=== PATIENT | female | born 1965 | race Caucasian/White ===

== ENCOUNTER 2020-05-09 22:56 | Inpatient (IN) | payer OTHER, MEDICAID, SELFPAY ==
[~2020-05-09] VITALS: Ht 162.6 cm; Wt 114.8 kg
[2020-05-09 22:56] VITALS: BP_SYST 91
--- NOTE | 2020-05-09 23:00 | NUR ---
Patient to ER bed 2 to gown for evaluation. Side rails up.
--- NOTE | 2020-05-09 23:10 | NUR ---
Dr. Lei bedside for pt eval
[2020-05-09] MEDS ORDERED: NACL 0.9% 1,000 ML IV ONE (23:15)
--- NOTE | 2020-05-09 23:15 | NUR ---
Pt QUEENIE from [facility] to ED with history of obesity seizure disorder high cholesterol hypothyroidism developmental delay overactive bladder bipolar disorder and depression brought in by EMS from her locked [facility], presents to the ED for gradual onset of hypotension. Per EMS when staff was doing there scheduled blood pressure checks found the patient to be hypotensive in the 60s. EMS was called. Per staff at the facility patient is at her mental baseline and had otherwise been well without any other complaints or issue
[2020-05-09 23:42] LABS: BASOPHILS # (AUTO) 0.2 K/uL (0.0-0.2); BASOPHILS % (AUTO) 1.8 % (0.0-2.0); HEMATOCRIT 38.7 % (36-48); HEMOGLOBIN 12.8 g/dL (12.0-16.0); LYMPHOCYTES # (AUTO) 0.6 K/uL (1.0-5.5); MEAN CORPUSCULAR HEMOGLOBIN 32 pg (27-31); MEAN CORPUSCULAR HGB CONC 33 % (32-36); MEAN CORPUSCULAR VOLUME 97 fL (79.0-98.0); MONOCYTES # (AUTO) 1.4 K/uL (0.0-1.0); MONOCYTES % (AUTO) 12.5 % (1.7-9.3); NEUTROPHILS # (AUTO) 9.3 K/uL (1.8-7.7); NEUTROPHILS % (AUTO) 80.7 % (40.0-70.0); PLATELET COUNT (AUTO) 115 K/uL (130-430); RED BLOOD CELL COUNT(AUTO) 3.99 MIL/uL (4.2-6.2); RED CELL DISTRIBUTION WIDTH 15.3 % (9.0-15.0); WHITE BLOOD COUNT (AUTO) 11.5 K/uL (4.8-10.8)
[2020-05-10] VITALS (9 sets, daily range): BP systolic 83–120
[2020-05-10 00:13] LABS: INR 1.1 (0.8-1.2); PROTHROMBIN TIME 11.6 SECS (9.5-12.5)
--- NOTE | 2020-05-10 00:18 | NUR ---
In and out cath and collect urine and send to lab.
[2020-05-10 00:23] LABS: CALCIUM 9.5 mg/dL (8.4-11.0); CREATININE 1.21 mg/dL (0.55-1.30); POTASSIUM 3.3 mmol/L (3.5-5.1)
[2020-05-10 00:26] LABS: ALBUMIN 2.4 g/dL (3.4-4.8); TOTAL BILIRUBIN 0.4 mg/dL (0.0-1.0)
[2020-05-10] MEDS ORDERED: NACL 0.9% 1,000 ML IV ONE (00:30)
--- NOTE | 2020-05-10 00:55 | NUR ---
RT bedside for ABG lab draw
--- NOTE | 2020-05-10 01:59 | NUR ---
O2 sat kept above 88% via Maximizer O2 device for 6 L
[2020-05-10] MEDS ORDERED: LevALBUTEROL HCL 1.25 MG/0.5 ML *CONC.* VIAL.NEB (XOPENEX CONC.) INH ONE (02:00)
[2020-05-10] MEDS ORDERED: IPRATROPIUM/ALBUTEROL SULFATE 3 ML AMPUL.NEB (DUONEB) INH PRN (02:45)
[2020-05-10] MEDS ORDERED: methylPREDNISolone SOD SUCC/PF 62.5 MG/ML VIAL IV SCH (03:00)
--- NOTE | 2020-05-10 03:01 | NUR ---
VSS, hypotension undercontrol SBP above 100
--- NOTE | 2020-05-10 04:02 | NUR ---
VSS no s/s of acute distress Resting on gurney rails up
[2020-05-10] MEDS ORDERED: LEVOFLOXACIN 500 MG/D5W 100 ML IV SCH (05:00)
--- NOTE | 2020-05-10 05:05 | NUR ---
Total care provided with complete linen change, well tolerated
--- NOTE | 2020-05-10 06:10 | NUR ---
Will continue on Tele monitoring protocol
--- NOTE | 2020-05-10 08:48 | NUR ---
PAGED DR ZEPEDA STAT
[2020-05-10] MEDS ORDERED: PIPERACILLIN/TAZOBACTAM 3.375 GM/VIAL (ZOSYN) IV ONE ×2 (09:04→21:35)
[2020-05-10] MEDS ORDERED: NOREPINEPHRINE 4 MG/4 ML VIAL IV ONE ×2 (09:07→22:27)
[2020-05-10] MEDS: NOREPINEPHRINE BITARTRATE 4 MG in NS 246 ML IV PRN ×2 (09:36→21:55)
[2020-05-10] MEDS: NACL 0.9% 1,000 ML IV SCH ×3 (09:38→21:09)
[2020-05-10] MEDS: PIPERACILLIN/TAZO 3.375/DEX-IS 50 ML IV SCH ×3 (09:38→21:52)
--- NOTE | 2020-05-10 09:56 | NUR ---
Pt reassessed, BP 98/39, P 92, RR 16, O2 sat 94%
[2020-05-10 09:59] LABS: INR 1.2 (0.8-1.2); PROTHROMBIN TIME 12.1 SECS (9.5-12.5)
[2020-05-10] MEDS ORDERED: HYDROCORTISONE SOD SUCC 100 MG/2 ML VIAL IVP ONE (10:00)
--- NOTE | 2020-05-10 10:10 | NUR ---
Pt Reassessed BP 113/48, P 95, O2 sat 93%, RR 16
--- NOTE | 2020-05-10 10:15 | NUR ---
Pt Reassessed BP 98/51, P 95, O2 sat 93%, RR 14
[2020-05-10 10:16] LABS: BASOPHILS % (AUTO) 0.2 % (0.0-2.0); HEMATOCRIT 33.7 % (36-48); HEMOGLOBIN 10.8 g/dL (12.0-16.0); LYMPHOCYTES % (AUTO) 4.9 % (20.5-51.5); MEAN CORPUSCULAR HEMOGLOBIN 32 pg (27-31); MEAN CORPUSCULAR HGB CONC 32 % (32-36); MEAN CORPUSCULAR VOLUME 100 fL (79.0-98.0); MONOCYTES # (AUTO) 2.5 K/uL (0.0-1.0); MONOCYTES % (AUTO) 12.6 % (1.7-9.3); NEUTROPHILS # (AUTO) 16.2 K/uL (1.8-7.7); NEUTROPHILS % (AUTO) 82.3 % (40.0-70.0); PLATELET COUNT (AUTO) 96 K/uL (130-430); RED BLOOD CELL COUNT(AUTO) 3.38 MIL/uL (4.2-6.2); RED CELL DISTRIBUTION WIDTH 16.1 % (9.0-15.0); WHITE BLOOD COUNT (AUTO) 19.7 K/uL (4.8-10.8)
--- NOTE | 2020-05-10 10:20 | NUR ---
Pt Reassessed BP 110/57, P 95, O2 sat 89%, RR 16
--- NOTE | 2020-05-10 10:25 | NUR ---
Pt maintaining blood pressure above goal limit. Pt resting in [facility], monitoring O2 saturation at this time, pt presents with increased work of breathing, cyanosis around lips, MD notified.
[2020-05-10 10:26] LABS: ANION GAP 15 (5-15); CALCIUM 8.9 mg/dL (8.4-11.0); CHLORIDE 104 mmol/L (98-107); CREATININE 1.58 mg/dL (0.55-1.30); GLUCOSE 122 mg/dL (70-99); POTASSIUM 3.4 mmol/L (3.5-5.1); SODIUM SERUM 138 mmol/L (136-145); UREA NITROGEN, BLOOD 21 mg/dL (8-21)
[2020-05-10 10:31] LABS: GFR AFRICAN AMERICAN 44 mL/min (>90)
[2020-05-10 10:34] LABS: ALANINE AMINOTRANSFERASE 15 U/L (12-78); ASPARTATE AMINOTRANSFERASE 15 U/L (10-37); TOTAL BILIRUBIN 0.5 mg/dL (0.0-1.0)
--- NOTE | 2020-05-10 11:00 | NUR ---
BiPap ordered for further assistance with patient respiration
[2020-05-10] MEDS ORDERED: PROPOFOL DRIP 100 ML IV ONE (11:24)
--- NOTE | 2020-05-10 11:30 | NUR ---
Patient not known to be of DNR status. Patient medicated with 20 mg of Etomidate and 50mg of Rocuronium for sedation prior to placement of ET tube. Respiratory therapy at bedside prior to placement. Size 7.5 ET tube placed by 21 at the lip. Cuff inflated with 10 cc air. Auscultation of breath sounds over bilateral chest wall. ET tube secured with device per RT. O2 sats 100% pulse ox. PCXR ordered to check tube placement.
[2020-05-10] MEDS ORDERED: methylPREDNISolone SOD SUCC/PF 62.5 MG/ML VIAL IVP SCH (12:00)
[2020-05-10] MEDS: VANCOMYCIN HCL 2,000 MG in NS 500 ML IV SCH (12:27)
--- NOTE | 2020-05-10 12:52 | NUR ---
Pt resting in gurney at this time, intubation sucessful, no distress noted at this time
--- NOTE | 2020-05-10 13:03 | NUR ---
PAGED DR MEJIA [phone]
[2020-05-10] MEDS ORDERED: ROCURONIUM BROMIDE 10 MG/ML (ZEMURON) IV ONE (15:02)
[2020-05-10] MEDS ORDERED: ETOMIDATE 20 MG/ 10 ML VIAL (AMIDATE) IVP ONE (15:02)
--- NOTE | 2020-05-10 15:04 | NUR ---
SS notes: Pt is a 55 y/o single female who came in via ED for COPD. Pt came from [facility] and has been there since April 25. Prior to [facility], pt was at [facility], and prior to that, pt was living at [facility]. C2 TACTICAL ANALYSIS TECHNICIAN spoke with linux system administrator Nadia Neri from [facility] ([phone]) who stated pt has been a resident with them since March 29, 2020. Pt is conserved by her father, George Rodriguez (p:[phone]) and belongs to [facility]. Pt's sales representative gas service is Makayla Moe (p:[phone]). C2 TACTICAL ANALYSIS TECHNICIAN phoned both conservator and sales representative gas service and left messages to call back. If medically and psychiatrically cleared and stable, pt can go back to [facility] ([address] [place] [address]). Melissa Peres of updated.
--- NOTE | 2020-05-10 15:35 | NUR ---
Nadia Neri from pt home called regarding pt status. Left contact number [phone]
--- NOTE | 2020-05-10 16:00 | NUR ---
Pt intubated at this time, Propofol and Levophed maintaining pt vital signs WNL. No distress noted at this time.
--- NOTE | 2020-05-10 18:00 | NUR ---
Pt vitals are stable at this time, pt appears comfortable, no distress noted
[2020-05-10 19:57] LABS: BILIRUBIN,URINE NEGATIVE (NEGATIVE); BLOOD, URINE NEGATIVE (NEGATIVE); CLARITY/URINE CLEAR (CLEAR); COLOR,URINE YELLOW (YELLOW); GLUCOSE,URINE NEGATIVE (NEGATIVE); KETONES,URINE TRACE (NEGATIVE); LEUKOCYTE ESTERASE ,URINE NEGATIVE (NEGATIVE); NITRITE, URINE NEGATIVE (NEGATIVE); PH,URINE 5.5 (5.0-8.0); PROTEIN URINE NEGATIVE (NEGATIVE); UROBILINOGEN,URINE 0.2 (0.2-1.0)
--- NOTE | 2020-05-10 20:00 | NUR ---
Patient will be admitted to [facility]. Admitted to icu unit. Will go to room 5. Belongings list completed. Complete and up to date summary report printed. SBAR report to be given at bedside with opportunity for questions.
--- NOTE | 2020-05-10 20:25 | NUR ---
ICU ADMIT Pt brought by SKIP LOAD DRIVER. Pt is sedated on vent, tolerating current vent settings. KENRICK PICCLINE noted with Diprivan and Levophed infusing. Wilkerson catheter in place and draining to gravity. Skin warm and dry. Safety precautions in place, call light within reach. Will continue to monitor.
--- NOTE | 2020-05-10 20:36 | NUR ---
Transfer to ICU via ACLS protocol. Licensed nurse present. IV present no signs or symptoms of infiltration.
--- NOTE | 2020-05-10 21:00 | NUR ---
Jake Cruz RN titrate diprivan to 25 mcg/kg/min
[2020-05-10] MEDS: HYDROCORTISONE SOD SUCC 100 MG/2 ML VIAL IVP SCH (21:13)
--- NOTE | 2020-05-10 21:30 | NUR ---
Jake Cruz RN titrate diprivan to 30 mcg/kg/min
[2020-05-10] MEDS: PROPOFOL DRIP 100 ML IV PRN (21:56)
[2020-05-10] MEDS ORDERED: FLU VACC QS2020-21 (6 mos & up) 0.5 ML/SYRINGE I.M. PRN (23:00)
[2020-05-11] VITALS (34 sets, daily range): BP systolic 71–141
[2020-05-11] MEDS: HYDROCORTISONE SOD SUCC 100 MG/2 ML VIAL IVP SCH ×3 (01:17→13:17)
[2020-05-11] MEDS: PIPERACILLIN/TAZO 3.375/DEX-IS 50 ML IV SCH ×5 (01:17→23:33)
[2020-05-11] MEDS: PROPOFOL DRIP 100 ML IV PRN ×6 (01:17→22:29)
[2020-05-11] MEDS: NOREPINEPHRINE BITARTRATE 4 MG in NS 246 ML IV PRN ×4 (04:08→21:28)
[2020-05-11] MEDS: NACL 0.9% 1,000 ML IV SCH ×3 (04:22→21:27)
--- NOTE | 2020-05-11 07:18 | NUR ---
ENDORSEMENT Pt care endorsed to dayshift RN using nursing SBAR.
--- NOTE | 2020-05-11 08:00 | NUR ---
AM ASSESSMENT. PT AFEBRILE, ORALLY INTUBATED, OPENED HER EYES TO TACTILE STIMULI, RECEIVING PROPOFOL DRIP AT 30 MCG/KG/MIN, NOREPINEPHRINE DRIP AT 0.1 MCG/KG/MIN. TURNED PT TO HER SIDE, PILLOW PLACED UNDER HER LEGS AND TO HER BACK. RASHES TO HER ABDOMEN AND SCRATCH BENDER TO ARMS, LEGS.
[2020-05-11 08:58] LABS: BILIRUBIN,URINE NEGATIVE (NEGATIVE); BLOOD, URINE NEGATIVE (NEGATIVE); COLOR,URINE YELLOW (YELLOW); GLUCOSE,URINE NEGATIVE (NEGATIVE); KETONES,URINE NEGATIVE (NEGATIVE); LEUKOCYTE ESTERASE ,URINE NEGATIVE (NEGATIVE); NITRITE, URINE NEGATIVE (NEGATIVE); PROTEIN URINE NEGATIVE (NEGATIVE); UROBILINOGEN,URINE 0.2 (0.2-1.0)
[2020-05-11 09:00] LABS: CLARITY/URINE SLIGHTLY HAZY (CLEAR)
--- NOTE | 2020-05-11 09:35 | NUR ---
SECOND NURSE WITNESSED LEVOPHED DRIP TO 0.13 MCG/KG/MIN AT THIS TIME.
--- NOTE | 2020-05-11 10:00 | NUR ---
SECOND NURSE WITNESSED LEVOPHED DRIP TO 0.10 MCG/KG/MIN AT THIS TIME.
[2020-05-11] MEDS: VANCOMYCIN HCL 2,000 MG in NS 500 ML IV SCH (10:51)
[2020-05-11 11:02] LABS: HEMATOCRIT 36.9 % (36-48); HEMOGLOBIN 12.1 g/dL (12.0-16.0); MEAN CORPUSCULAR HEMOGLOBIN 32 pg (27-31); MEAN CORPUSCULAR HGB CONC 33 % (32-36); MEAN CORPUSCULAR VOLUME 96 fL (79.0-98.0); PLATELET COUNT (AUTO) 80 K/uL (130-430); RED BLOOD CELL COUNT(AUTO) 3.85 MIL/uL (4.2-6.2); RED CELL DISTRIBUTION WIDTH 16.4 % (9.0-15.0)
[2020-05-11 11:07] LABS: CALCIUM 8.3 mg/dL (8.4-11.0); CREATININE 0.89 mg/dL (0.55-1.30)
--- NOTE | 2020-05-11 11:11 | NUR ---
Nutrition Update Bairon Scale 13 noted. Pt admitted for COVID. Diet: NPO BMI: 43.6 kg/m2 RD to follow per nutrition care standards.
[2020-05-11 11:22] LABS: WHITE BLOOD COUNT (AUTO) 39.6 K/uL (4.8-10.8)
[2020-05-11 11:26] LABS: ALBUMIN 1.9 g/dL (3.4-4.8); TOTAL BILIRUBIN 1.1 mg/dL (0.0-1.0)
--- NOTE | 2020-05-11 11:30 | NUR ---
ELEVATED WBC PAGED DR DOWNING SEMICONDUCTOR DEVELOPMENT TECHNICIAN FOR DR DANG.
--- NOTE | 2020-05-11 11:40 | NUR ---
FAMILY. A CALL RECEIVED FROM GRACE, HE SAID HE IS HER FATHER, CURRENTLY RESIDING IN [place], . UPDATE GIVEN ON HER STATUS.
--- NOTE | 2020-05-11 12:19 | NUR ---
Gas Prover: Gas Prover referral received CONSULTING DATABASE ADMINISTRATOR spoke to patients father as patient in intubated as of 05/10 and in ICU. Father stated he is in agreement with patient going to [facility] once patient is medically cleared. Father wanted to know a medical update so CONSULTING DATABASE ADMINISTRATOR transferred him over to the pharmacy intern. station. CONSULTING DATABASE ADMINISTRATOR will remain available as needed.
--- NOTE | 2020-05-11 12:30 | NUR ---
. DR DOWNING IN THE UNIT AND WENT TO ASSESS PT. NEW ORDERS RECEIVED, TO CONSULT DR HANCOCK.
--- NOTE | 2020-05-11 12:35 | NUR ---
CONSULTATION PAGED PRIORITY: ROUTINE REASON FOR CONSULTATION?:ELEVATED WBC WAS CONSULT CALLED:Y PERSON WHO WAS NOTIFIED:BUSTER CONSULTING PHYSICIAN:DAVE NEAL (HEATHER WEBER DOG RACES MANAGER) TEMPERATURE REGULATOR SPECIALTY:INFECTIOUS DISEASE TEMPERATURE REGULATOR PHONE NUMBER:[phone] REQUESTING PHYSICIAN:ANA LILIA TREVIÑO
[2020-05-11 13:46] LABS: ATYPICAL LYMPHOCYTES % 0 % (0-0); BAND % (MANUAL) 64 % (0-6); BASOPHILS % (MANUAL) 0 % (0-2); EOSINOPHILS % (MANUAL) 0 % (0-7); LYMPHOCYTES % (MANUAL) 4 % (20-46); MONOCYTES % (MANUAL) 8 % (0-11)
[2020-05-11 13:47] LABS: METAMYELOCYTES % 0 % (0-0)
--- NOTE | 2020-05-11 15:00 | NUR ---
Dietitian Recommendations * Recommend Vital HP at 45 ml/hr (goal rate), Free Water Flush: 100 ml Q6h via NGT Provides (w/ current propofol infusion): 1809 kcal/day, 95 gm protein/day, and 1303 ml free water/day Meets: 95% of estimated caloric needs and 90% of lower end of estimated protein needs LP, RD Please refer to Nutrition Assessment for details. Addendum: 05/11/20 at [address] Amended: Links added.
[2020-05-11] MEDS ORDERED: HYDROCORTISONE SOD SUCC 100 MG/2 ML VIAL IVP ONE (17:00)
[2020-05-11] MEDS: RIVAROXABAN 10 MG TABLET NG SCH (18:15)
--- NOTE | 2020-05-11 19:15 | NUR ---
PM SHIFT ASSESSMENT Pt is sedated on vent, tolerating current vent settings. KENRICK PICCLINE noted with Diprivan and Levophed infusing. Wilkreson catheter in place and draining to gravity. Skin warm and dry. Safety precautions in place, call light within reach. Will continue to monitor.
[2020-05-11] MEDS ORDERED: ENOXAPARIN SODIUM 40 MG/0.4 ML SYRINGE SUBCUT SCH (21:00)
[2020-05-11] MEDS ORDERED: NOREPINEPHRINE 4 MG/4 ML VIAL IV ONE (21:15)
--- NOTE | 2020-05-11 22:30 | NUR ---
Spoke to Dr. Kimani MD up to date on patients current condition and aware patient is MRSA positive. MD to enter new orders.
[2020-05-12] VITALS (29 sets, daily range): BP systolic 79–158
[2020-05-12] MEDS: NACL 0.9% 1,000 ML IV SCH ×3 (02:27→21:57)
[2020-05-12] MEDS: PROPOFOL DRIP 100 ML IV PRN ×4 (02:38→19:09)
--- NOTE | 2020-05-12 03:33 | NUR ---
rt notes [phone] tried titrating fio2 to 50%, pt saturation fluctuates to 92-93%. switched FIO2 back to 60%, sat now 95%, RN Nancy aware about the trial. will continue to monitor pt.
--- NOTE | 2020-05-12 04:00 | NUR ---
Witnessed RN titrate Diprivan @ 25
[2020-05-12] MEDS ORDERED: NOREPINEPHRINE 4 MG/4 ML VIAL IV ONE ×2 (04:45→11:07)
[2020-05-12] MEDS: PIPERACILLIN/TAZO 3.375/DEX-IS 50 ML IV SCH ×3 (05:48→17:54)
[2020-05-12] MEDS: NOREPINEPHRINE BITARTRATE 4 MG in NS 246 ML IV PRN ×3 (06:33→21:33)
[2020-05-12 07:19] LABS: HEMATOCRIT 34.8 % (36-48); HEMOGLOBIN 11.4 g/dL (12.0-16.0); MEAN CORPUSCULAR HEMOGLOBIN 32 pg (27-31); MEAN CORPUSCULAR HGB CONC 33 % (32-36); MEAN CORPUSCULAR VOLUME 98 fL (79.0-98.0); PLATELET COUNT (AUTO) 71 K/uL (130-430); RED BLOOD CELL COUNT(AUTO) 3.56 MIL/uL (4.2-6.2); RED CELL DISTRIBUTION WIDTH 16.5 % (9.0-15.0)
--- NOTE | 2020-05-12 07:20 | NUR ---
ENDORSEMENT Pt care endorsed to dayshift RN using nursing SBAR.
--- NOTE | 2020-05-12 08:00 | NUR ---
AM ASSESSMENT. PT AFEBRILE, SKIN NOTED WITH RASHES, DRY SCRATCH BENDER, TURNED PT TO HER SIDE, ORAL CARE DONE, MECHANICALLY INTUBATED, ON PROPOFOL DRIP AT 30 MCG/KG/MIN, LEVOPHED DRIP AT 0.1 MCG/KG/MIN INFUSING THRU PICC PORTS, IVF INFUSING INTO HER RIGHT FOREARM, NSS AT 150 ML PER HR, BROUSSARD CATHETER DRAINING MERCEDES COLOR URINE.
[2020-05-12 08:01] LABS: ALBUMIN 1.6 g/dL (3.4-4.8); CALCIUM 8.5 mg/dL (8.4-11.0); CREATININE 0.72 mg/dL (0.55-1.30); TOTAL BILIRUBIN 0.7 mg/dL (0.0-1.0)
[2020-05-12] MEDS: HYDROCORTISONE SOD SUCC 100 MG/2 ML VIAL IVP SCH ×2 (08:40→21:20)
[2020-05-12] MEDS: LINEZOLID 300 ML IV SCH ×2 (08:40→21:21)
--- NOTE | 2020-05-12 10:07 | NUR ---
XRAY CHEST XRAY DONE AT BEDSIDE.
[2020-05-12] MEDS ORDERED: ALBUMIN HUMAN 25% 50 ML IV ONE ×3 (10:11→21:14)
[2020-05-12] MEDS: ALBUMIN HUMAN 25% 50 ML IV SCH ×3 (10:13→21:21)
--- NOTE | 2020-05-12 10:13 | NUR ---
MEDS. 1ST DOSE ALBUMIN 50 ML HUNG ORDERED.
[2020-05-12 10:41] LABS: WHITE BLOOD COUNT (AUTO) 43.8 K/uL (4.8-10.8)
--- NOTE | 2020-05-12 11:05 | NUR ---
WET MOUNT. SKIN SCRAPING DONE FROM LOWER EXTREMITIES.
--- NOTE | 2020-05-12 12:00 | NUR ---
Witnessed RN titrate Levophed @ 0.06 mcg. Witnessed RN titrate Diprivan @ 20 mcg.
[2020-05-12 12:36] LABS: ATYPICAL LYMPHOCYTES % 0 % (0-0); BAND % (MANUAL) 63 % (0-6); LYMPHOCYTES % (MANUAL) 4 % (20-46); MONOCYTES % (MANUAL) 5 % (0-11)
[2020-05-12 12:37] LABS: BASOPHILS % (MANUAL) 0 % (0-2); EOSINOPHILS % (MANUAL) 0 % (0-7)
[2020-05-12] MEDS ORDERED: POTASSIUM CHLORIDE 40 MEQ in NS 250 ML IV ONE (13:15)
[2020-05-12] MEDS ORDERED: FUROSEMIDE 40 MG/4 ML VIAL IVP ONE (16:00)
--- NOTE | 2020-05-12 17:15 | NUR ---
FAMILY PT'S FATHER GRACE CALLED, UPDATE GIVEN ON HER STATUS.
[2020-05-12] MEDS: RIVAROXABAN 10 MG TABLET NG SCH (17:57)
[2020-05-12] MEDS ORDERED: FUROSEMIDE 40 MG/4 ML VIAL IVP SCH (21:00)
--- NOTE | 2020-05-12 23:40 | NUR ---
RT NOTES 2340 INCREASED FIO2 TO 70%, PT DESATURATING 84%. RN SASKIA AWARE,NO DISTRESS RIGHT NOW. WILL CONTINUE TO MONITOR PT.
[2020-05-13] VITALS (31 sets, daily range): BP systolic 90–163
[2020-05-13] MEDS: PIPERACILLIN/TAZO 3.375/DEX-IS 50 ML IV SCH ×2 (00:29→06:15)
[2020-05-13] MEDS: PROPOFOL DRIP 100 ML IV PRN ×4 (03:36→21:40)
[2020-05-13] MEDS: NOREPINEPHRINE BITARTRATE 4 MG in NS 246 ML IV PRN (04:40)
[2020-05-13] MEDS: NACL 0.9% 1,000 ML IV SCH ×3 (05:16→12:46)
[2020-05-13 07:06] LABS: HEMATOCRIT 31.7 % (36-48); HEMOGLOBIN 10.5 g/dL (12.0-16.0); MEAN CORPUSCULAR HEMOGLOBIN 31 pg (27-31); MEAN CORPUSCULAR HGB CONC 33 % (32-36); MEAN CORPUSCULAR VOLUME 95 fL (79.0-98.0); PLATELET COUNT (AUTO) 51 K/uL (130-430); RED BLOOD CELL COUNT(AUTO) 3.36 MIL/uL (4.2-6.2); RED CELL DISTRIBUTION WIDTH 16.3 % (9.0-15.0); WHITE BLOOD COUNT (AUTO) 29.7 K/uL (4.8-10.8)
--- NOTE | 2020-05-13 07:20 | NUR ---
Opening Notes Pt received from night RN using SBAR
[2020-05-13 07:47] LABS: CALCIUM 8.4 mg/dL (8.4-11.0); CREATININE 0.68 mg/dL (0.55-1.30); TOTAL BILIRUBIN 1.1 mg/dL (0.0-1.0)
[2020-05-13 08:02] LABS: POTASSIUM 1.9 mmol/L (3.5-5.1)
--- NOTE | 2020-05-13 08:12 | NUR ---
HIGH ALERT NOTE: Called Dr. Castelan back at identified within the medical roster to verify physician authenticity. New orders received, 60mEq Krider, 40 mEq PO of K.
[2020-05-13] MEDS ORDERED: POTASSIUM CHLORIDE 20 MEQ/PKT PACKET PO ONE ×2 (08:15→22:45)
[2020-05-13] MEDS ORDERED: POTASSIUM CHLORIDE 60 MEQ in NS 500 ML IV ONE (08:15)
--- NOTE | 2020-05-13 08:45 | NUR ---
MD Dr. Livingston at bedside with pt.
[2020-05-13] MEDS ORDERED: POTASSIUM CHLORIDE 20 MEQ/PKT PACKET ONE (09:00)
[2020-05-13] MEDS: HYDROCORTISONE SOD SUCC 100 MG/2 ML VIAL IVP SCH ×2 (09:03→21:19)
[2020-05-13] MEDS: LINEZOLID 300 ML IV SCH (09:04)
--- NOTE | 2020-05-13 09:39 | NUR ---
Sewer Line Repairer notes SERVICE TRANSFORMER REPAIR SUPERVISOR received a phone call from Makayla Moe from [facility] in [place], who wanted an update re. their client. Makayla stated patient came from [place] on 05/10. SERVICE TRANSFORMER REPAIR SUPERVISOR looked up patients file and was able to confirm this info. Makayla wanted a medical update. SERVICE TRANSFORMER REPAIR SUPERVISOR transferred her to the ICU nurses station.
[2020-05-13 11:38] LABS: BAND % (MANUAL) 39 % (0-6); BASOPHILS % (MANUAL) 0 % (0-2); EOSINOPHILS % (MANUAL) 0 % (0-7); LYMPHOCYTES % (MANUAL) 3 % (20-46); METAMYELOCYTES % 4 % (0-0); MONOCYTES % (MANUAL) 4 % (0-11)
[2020-05-13] MEDS: VANCOMYCIN HCL 1,250 MG in NS 250 ML IV SCH (14:23)
--- NOTE | 2020-05-13 17:15 | NUR ---
PICC LINE DRESSING CHANGE Pt provided PICC/Central line dressing change using sterile technique. Pt tolerated well.
[2020-05-13] MEDS: RIVAROXABAN 10 MG TABLET NG SCH (18:00)
--- NOTE | 2020-05-13 18:00 | NUR ---
CHG Pt provided CHG with partial linen change. Pt tolerated well.
--- NOTE | 2020-05-13 19:12 | NUR ---
Pt report received. Pt resting quietly with eyes closed, ETT size 7.5, 19 cm to lip with vent settings: A/C, 24, 500, 70%, 5. OGT secure with Vital High Protein at 45 mL/hr. No residual. RUE PICC with Levophed infusing at 0.03 mcg/kg/min, Diprivan at 20 mcg/kg/min, and NS at 75 mL/hr. PIVs patent and secure. F/C draining yellow urine. VSS, NAD.
--- NOTE | 2020-05-13 19:12 | NUR ---
Closing Notes Pt endorsed to Jacob VIVAS using SBAR.
--- NOTE | 2020-05-13 19:35 | NUR ---
New orders received from Dr. Lagunas: Contact Dr. Castelan if changes in labs.
[2020-05-13 20:15] LABS: CALCIUM 7.9 mg/dL (8.4-11.0); CREATININE 0.68 mg/dL (0.55-1.30); POTASSIUM 3.1 mmol/L (3.5-5.1)
--- NOTE | 2020-05-13 21:05 | NUR ---
DIPRIVAN DRIP TITRATION MERRITT SINGH RN TITRATE DIPRIVAN DRIP TO 25 MCG/KG/MIN PER ORDERS. WILL CONTINUE TO MONITOR PT.
--- NOTE | 2020-05-13 21:30 | NUR ---
DIPRIVAN DRIP TITRATION MERRITT SINGH RN TITRATE DIPRIVAN DRIP TO 30 MCG/KG/MIN PER ORDERS. WILL CONTINUE TO MONITOR PT.
[2020-05-13] MEDS: CEFEPIME 0.5 GM in D5W 50 ML IV SCH (21:57)
--- NOTE | 2020-05-13 22:23 | NUR ---
PAGED DR. DANG FOR ORDERS DIALED: [phone] SPOKE TO: MONIKA
--- NOTE | 2020-05-13 22:25 | NUR ---
Spoke with Dr. Castelan to inform him of recent labs. New order received per Dr. Castelan: Potassium 40 mEq per NGT and K-rider 40 mEq IVPB for K+ 3.1.
[2020-05-13] MEDS ORDERED: KCL 40 mEq in 100 mL (PREMIX) 100 ML IV ONE (22:45)
[2020-05-14] VITALS (28 sets, daily range): BP systolic 98–120
--- NOTE | 2020-05-14 | NUR ---
ASSUMPTION OF CARE REPORT RECEIVED FROM SAMANTHA VIVAS TO ASSUME CARE AT THIS TIME. PT RECEIVED WITH EYES CLOSED, RESPONDING TO TACTILE STIMULATION. PT INTUBATED, VENT SETTINGS: AC 24, TV 500, FIO2 70%, PEEP 5. SR ON MONITOR. KENRICK PICC IN PLACE INFUSING IVF, DIPRIVAN AND LEVOPHED DRIP PER ORDERS. R WRIST 20G TO SL, PATENT AND INTACT. OGT IN PLACE RUNNING TF PER ORDERS. BROUSSARD CATH DRAINING URINE TO GRAVITY. HOB ELEVATED, BED IN LOWEST POSITION, CALL LIGHT IN REACH. WILL CONTINUE TO MONITOR PT.
--- NOTE | 2020-05-14 | NUR ---
Closing Note: Pt care endorsed to receiving RN in stable condition.
[2020-05-14] MEDS: VANCOMYCIN HCL 1,250 MG in NS 250 ML IV SCH ×2 (00:49→12:57)
[2020-05-14] MEDS: PROPOFOL DRIP 100 ML IV PRN ×6 (01:28→23:48)
--- NOTE | 2020-05-14 01:45 | NUR ---
RT NOTES 0145 TITRATED FIO2 TO 60%, PT TOLERATING WELL, SATURATING 94-95%. NO RESP DISTRESS AT THIS TIME. RN REMINGTON AWARE OF CHANGES. WILL CONTINUE TO MONITOR PT.
--- NOTE | 2020-05-14 02:00 | NUR ---
VENT CHANGES PT SATURATIONS IN MID 90s. FIO2 DECREASED TO 60% BY RT AT THIS TIME. WILL CONTINUE TO MONITOR PT.
[2020-05-14 06:02] LABS: HEMOGLOBIN 8.9 g/dL (12.0-16.0); MEAN CORPUSCULAR HGB CONC 33 % (32-36)
[2020-05-14 06:19] LABS: HEMATOCRIT 26.9 % (36-48); MEAN CORPUSCULAR HEMOGLOBIN 32 pg (27-31); MEAN CORPUSCULAR VOLUME 96 fL (79.0-98.0); RED BLOOD CELL COUNT(AUTO) 2.82 MIL/uL (4.2-6.2); RED CELL DISTRIBUTION WIDTH 16.2 % (9.0-15.0); WHITE BLOOD COUNT (AUTO) 18.5 K/uL (4.8-10.8)
[2020-05-14 06:26] LABS: CREATININE 0.63 mg/dL (0.55-1.30); POTASSIUM 3.5 mmol/L (3.5-5.1)
[2020-05-14 06:53] LABS: PLATELET COUNT (AUTO) 45 K/uL (130-430)
--- NOTE | 2020-05-14 07:33 | NUR ---
ENDORSEMENT BEDSIDE REPORT GIVEN TO SHASHANK VIVAS USING SBAR APPROACH.
--- NOTE | 2020-05-14 08:00 | NUR ---
AM ASSESSMENT. PT RECEIVING PROPOFOL DRIP AT 30 MCG/KG/MIN, LEVOPHED DRIP AT 0.03 MCG/KG/MIN, MARIPOSA SCALE 4, ORAL SUCTIONING DONE, TURNED PT TO HER SIDE, PILLOW TO SUPPORT THE BACK AND LEGS, SKIN WARM TO TOUCH, TEMP 97.8, RASH TO HER BODY, BROUSSARD CATHETER DRAINING MERCEDES URINE.
[2020-05-14] MEDS: CEFEPIME 0.5 GM in D5W 50 ML IV SCH ×2 (08:30→23:56)
[2020-05-14] MEDS: HYDROCORTISONE SOD SUCC 100 MG/2 ML VIAL IVP SCH ×2 (08:31→23:55)
[2020-05-14] MEDS: NACL 0.9% 1,000 ML IV SCH (09:13)
[2020-05-14] MEDS: D5W 1,000 ML IV SCH (11:00)
--- NOTE | 2020-05-14 11:38 | NUR ---
Nutrition F/U RD reviewed pt's current EMR record including diet hx, MD notes, RN notes, pertinent labs/meds/procedures, care trends, and care activity Admitting Diagnosis COPD Reviewed Pertinent Medical/Surgical Hx Medical Record Other Medical History Comment: PMH: COPD, bipolar disorder, hypothyroidism per physician notes Pt also found w/ septic shock, possibly from pneumonia, r/o COVID pneumonia, r/o UTI, moderate obesity per physician notes SARS-CoV-2 Ag (Rapid) Negative 05/10 Subjective Information Pt remains intubated, sedated, on vent, and under COVID isolation precautions and RD visit remains deferred at this time. Per RN note, pt tolerating TF Vital HP at goal rate of 45 ml w/ minimal residuals noted per EMR. Per MAR, propofol infusing at 23.678 ml/hr (625 kcal/day) Current TF regimen w/ propofol remains adequate and appropriate to meet needs. Will adjust TF goal rate according to changes in propofol infusion rate. Labs reviewed and noted -- Na labs have been trending up since previous RD assessment, and BG and WBC labs trending down. No BMs noted -- if pt continues to be w/o BM, consider bowel regimen if no contraindicated. Will continue monitor. Current Diet Order/Nutrition Support TF Vital High Protein at goal rate of 45 ml/hr. FWF 100 ml q6h x 3 days Pertinent Medications propofol at 23.678 ml/hr (625 kcal/day), piperacillin/tazobactam IV, norepinephrine, solu-cortef, xarelto, IV D5W @ 60 ml/hr Pertinent Labs BG 128 H (trending down), BNP 377 H, WBC 18.5 H (trending down), ALB 2.0 L, Na 152 H, K 3.5 Patient Weight 114.759 kg Skin Integrity Comment: Bairon scale: 13; no PIs noted per EMR review; RN reported that pt has rashes to abd, arms, and legs Estimated Energy Expenditure (kcals/day) 1897 kcal/day (REE using PSU 2003b d/t critical illness on vent) Estimated Protein Required (g/day) 105-140 gm/day (1.5-2 gm/kg Adj IBW for sepsis, critical illness on vent) Estimated Fluid Required (l/day) 1.9 L/day (1 ml/kcal/day for maintenance) Problem/Etiology/Signs/Symptoms Increased nutritional needs related to metabolic demands as evidenced by estimated nutritional requirements for sepsis and critical illness on vent. *ongoing Expected Outcomes/Goals - Monitor provision of EN support w/ goal of pt meeting at least 80% of estimated nutritional needs, labs trending WNL, normal GI function, and skin integrity/wt maintenance Dietitian Recommendations * Recommend Vital HP at 45 ml/hr (goal rate), Free Water Flush: 100 ml Q6h via NGT Provides (w/ current propofol infusion): 1705 kcal/day, 95 gm protein/day, and 1303 ml free water/day Meets: 90% of estimated caloric needs and 90% of lower end of estimated protein needs Follow Up High Risk: F/U in 2-3days
--- NOTE | 2020-05-14 12:16 | NUR ---
Dietitian Recommendations * Recommend Vital HP at 45 ml/hr (goal rate), Free Water Flush: 100 ml Q6h via NGT Provides (w/ current propofol infusion): 1705 kcal/day, 95 gm protein/day, and 1303 ml free water/day Meets: 90% of estimated caloric needs and 90% of lower end of estimated protein needs Please see Nutrition F/U for details. EP,RD
--- NOTE | 2020-05-14 12:43 | NUR ---
XRAY. CHEST XRAY DONE AT BEDSIDE.
[2020-05-14 14:14] LABS: ATYPICAL LYMPHOCYTES % 3 % (0-0); BAND % (MANUAL) 8 % (0-6); BASOPHILS % (MANUAL) 0 % (0-2); EOSINOPHILS % (MANUAL) 0 % (0-7); LYMPHOCYTES % (MANUAL) 20 % (20-46); METAMYELOCYTES % 2 % (0-0); MONOCYTES % (MANUAL) 12 % (0-11); MYELOCYTES % 1 % (0-0)
--- NOTE | 2020-05-14 14:45 | NUR ---
Wound Evaluation: Wound Consult ordered for Low Bairon Score. Patient evaluated for a low Bairon score of 13. Patient was lethagic, non-verbal, and received in a [facility] Bed with an Isoflex KARINA mattress with low air loss therapy initiated. Patient needs to be turned in bed. Skin assessment: 1. General body: Multiple, multiple areas of scar tissue and dry excoriations, present on admission. Recommend: Cleanse involved areas with mild soap and water. Pat dry. Apply Eucerin cream to involved areas. Perform site care twice daily. Recommend reposition patient every 2 hours with pillow support. Elevate, off-load and float bilateral heels with pillows. Offload pressure areas with pillows for pressure re-distribution. Perform skin care and monitor skin integrity Q shift. Use moisture barrier cream on moisture susceptible areas QID and PRN for soiling. Maintain patient on low air-loss therapy.
[2020-05-14] MEDS ORDERED: FUROSEMIDE 40 MG/4 ML VIAL IVP ONE (15:45)
--- NOTE | 2020-05-14 15:50 | NUR ---
IV DRIPS. LEVOPHED DRIP RESUMED TO 0.03 MCG/KG/MIN PER ORDER OF DR BERMUDEZ.
--- NOTE | 2020-05-14 18:15 | NUR ---
NURSING. PT SEEN WIGGLING HER ARMS AND LEGS, REPOSITIONED IN BED, SMALL AMOUNT OF MUCOUS LIKE BOWEL MOVEMENT, INCONTINENT CARE DONE.
[2020-05-14] MEDS ORDERED: NOREPINEPHRINE 4 MG/4 ML VIAL IV ONE (21:34)
[2020-05-14] MEDS: NOREPINEPHRINE BITARTRATE 4 MG in NS 246 ML IV PRN (21:38)
[2020-05-15] VITALS (26 sets, daily range): BP systolic 85–146
[2020-05-15] MEDS: VANCOMYCIN HCL 1,250 MG in NS 250 ML IV SCH ×2 (01:45→12:16)
[2020-05-15] MEDS: D5W 1,000 ML IV SCH ×2 (02:40→15:19)
[2020-05-15] MEDS: PROPOFOL DRIP 100 ML IV PRN ×3 (04:59→20:13)
[2020-05-15] MEDS: CEFEPIME 0.5 GM in D5W 50 ML IV SCH ×2 (10:15→21:08)
[2020-05-15] MEDS: HYDROCORTISONE SOD SUCC 100 MG/2 ML VIAL IVP SCH ×2 (10:16→21:07)
[2020-05-15] MEDS: FUROSEMIDE 40 MG/4 ML VIAL IVP SCH (10:17)
[2020-05-15 11:43] LABS: BASOPHILS # (AUTO) 0.1 K/uL (0.0-0.2); BASOPHILS % (AUTO) 0.7 % (0.0-2.0); EOSINOPHILS # (AUTO) 0.2 K/uL (0.0-0.4); EOSINOPHILS % (AUTO) 1.9 % (0.0-4.0); HEMATOCRIT 29.5 % (36-48); HEMOGLOBIN 10.1 g/dL (12.0-16.0); LYMPHOCYTES # (AUTO) 4.5 K/uL (1.0-5.5); LYMPHOCYTES % (AUTO) 41.4 % (20.5-51.5); MEAN CORPUSCULAR HEMOGLOBIN 32 pg (27-31); MEAN CORPUSCULAR HGB CONC 34 % (32-36); MEAN CORPUSCULAR VOLUME 94 fL (79.0-98.0); MONOCYTES # (AUTO) 1.2 K/uL (0.0-1.0); MONOCYTES % (AUTO) 10.7 % (1.7-9.3); NEUTROPHILS % (AUTO) 45.3 % (40.0-70.0); RED BLOOD CELL COUNT(AUTO) 3.14 MIL/uL (4.2-6.2); RED CELL DISTRIBUTION WIDTH 16.5 % (9.0-15.0); WHITE BLOOD COUNT (AUTO) 10.9 K/uL (4.8-10.8)
[2020-05-15 11:49] LABS: PLATELET COUNT (AUTO) 44 K/uL (130-430)
[2020-05-15 11:59] LABS: CALCIUM 8.7 mg/dL (8.4-11.0); CREATININE 0.7 mg/dL (0.55-1.30)
[2020-05-15] MEDS ORDERED: EMOLLIENT COMBINATION NO.73 78 GM CREAM..G. TP ONE (12:00)
[2020-05-15 12:04] LABS: ALBUMIN 2.1 g/dL (3.4-4.8); TOTAL BILIRUBIN 1.4 mg/dL (0.0-1.0)
[2020-05-15 12:14] LABS: POTASSIUM 2.8 mmol/L (3.5-5.1)
[2020-05-15] MEDS ORDERED: POTASSIUM CHLORIDE 20 MEQ/PKT PACKET PO ONE (13:30)
--- NOTE | 2020-05-15 13:30 | NUR ---
Witnessed Diprivan drip titration down to 25 mcg/kg/min.
--- NOTE | 2020-05-15 15:45 | NUR ---
RT NOTES FIO2 TO 0.50. Will monitor pt. RN made aware.
[2020-05-15] MEDS: NOREPINEPHRINE BITARTRATE 4 MG in NS 246 ML IV PRN (19:07)
--- NOTE | 2020-05-15 21:00 | NUR ---
WITNESS Witnessed Nancy VIVAS titrate Propofol to 30 mcg.
[2020-05-15] MEDS: EMOLLIENT COMBINATION NO.73 78 GM CREAM..G. TP SCH (21:08)
--- NOTE | 2020-05-15 21:40 | NUR ---
RT NOTES 2140 TITRATED FIO2 TO 40%, PT SATURATION 98%, PT TOLERATING WELL. NO RESP DISTRESS NOTED. RN MARIA INES AWARE. WILL CONTINUE TO MONITOR PT.
--- NOTE | 2020-05-15 23:30 | NUR ---
RT NOTES 2330 TITRATED FIO2 TO 30%, PT SATURATING 98%, TOLERATING WELL. NO RESP DISTRESS NOTED. RN MARIA INES AWARE. WILL CONTINUE TO MONITOR PT.
[2020-05-16] VITALS (25 sets, daily range): BP systolic 92–174
[2020-05-16] MEDS: VANCOMYCIN HCL 1,250 MG in NS 250 ML IV SCH ×2 (00:33→13:00)
[2020-05-16] MEDS: PROPOFOL DRIP 100 ML IV PRN ×2 (01:04→06:20)
--- NOTE | 2020-05-16 07:15 | NUR ---
ENDORSEMENT Pt care endorsed to dayshift RN using nursing SBAR.
--- NOTE | 2020-05-16 08:00 | NUR ---
RN NOTES ORALLY INTUBATED, ON SAME VENT SETTING. DIPRIVAN DRIP @ 30 MCG/KG/MIN
--- NOTE | 2020-05-16 08:30 | NUR ---
RN NOTES VITALS STABLE. LEVOPHED AND PROPOFOL DRIP OFF. WAITING FOR RT TO CHANGE PT TO CPAP.
--- NOTE | 2020-05-16 08:50 | NUR ---
RT NOTES Per dr guzmán's order, vent to cpap 5 ps 10. will monitor pt. rn aware.
--- NOTE | 2020-05-16 09:00 | NUR ---
RN NOTES PATIENT ON CPAP 5 WILL MONITOR CLOSELY.
[2020-05-16] MEDS: HYDROCORTISONE SOD SUCC 100 MG/2 ML VIAL IVP SCH ×2 (09:41→20:11)
[2020-05-16] MEDS: FUROSEMIDE 40 MG/4 ML VIAL IVP SCH (09:41)
[2020-05-16] MEDS: CEFEPIME 0.5 GM in D5W 50 ML IV SCH ×2 (09:43→20:12)
[2020-05-16] MEDS: EMOLLIENT COMBINATION NO.73 78 GM CREAM..G. TP SCH ×2 (09:49→20:12)
[2020-05-16] MEDS ORDERED: POTASSIUM CHLORIDE 20 MEQ/PKT PACKET PO ONE (10:15)
--- NOTE | 2020-05-16 10:25 | NUR ---
RN NOTES ABG RESULTS ON CPAP RELAYED TO DR. BERMUDEZ, WITH ORDERS TO EXTUBATE.
--- NOTE | 2020-05-16 10:50 | NUR ---
RT NOTES Per dr guzmán's order, pt was extubated and placed on 2L nc to maintain saturation >/= 90%. No adverse reactions noted. Will monitor pt.
--- NOTE | 2020-05-16 10:55 | NUR ---
RN NOTES PATIENT EXTUBATED, PLACED ON O2 @ 2L/MIN VIA NC
--- NOTE | 2020-05-16 13:00 | NUR ---
MD VISIT PATIENT SEEN BY DR. MELGOZA, WITH ORDERS. TELEMETRY STATUS AT THIS TIME.
[2020-05-16] MEDS ORDERED: KCL 40 mEq in 100 mL (PREMIX) 100 ML IV ONE (13:15)
[2020-05-16] MEDS: D5W 1,000 ML IV SCH (13:23)
[2020-05-16] MEDS ORDERED: HALOPERIDOL LACTATE 5 MG/ML VIAL ONE ×2 (16:14→19:41)
[2020-05-16] MEDS ORDERED: HALOPERIDOL LACTATE 5 MG/ML VIAL IVP PRN (16:15)
[2020-05-16] MEDS ORDERED: LORazepam 2 MG/ML VIAL ONE (17:03)
[2020-05-16] MEDS: LORazepam 2 MG/ML VIAL IVP PRN ×2 (17:46→22:33)
--- NOTE | 2020-05-16 18:01 | NUR ---
Called speech therapist at [phone] with a swallow eval, left message on voice mail
--- NOTE | 2020-05-16 19:25 | NUR ---
OPENING NOTE RECEIVED SBAR REPORT FROM OFF COMING RN FOR CONTINUITY OF CARE. PT LAYING IN BED, AWAKE AND ALERT YELLING AND MOVING IN BED. PT ON 2L OF O2 VIA NC, O2 SATURATIONS MAINTAINED ABOVE 95%. D5W INFUSING @ 60 ML/HR. BROUSSARD CATHETER IN PLACE AND DRAINING TO GRAVITY, MERCEDES URINE OUTPUT NOTED. CALL LIGHT WITHIN REACH. BED LOCKED IN LOWEST POSITION, SAFETY PRECAUTIONS IN PLACE.
[2020-05-16] MEDS: POTASSIUM CHLORIDE 20 MEQ/PKT PACKET PO SCH ×2 (20:12→21:00)
--- NOTE | 2020-05-16 21:15 | NUR ---
Transfer from ICU: Received patient via hospital bed from ICU. Report received from POLICY ADVISER. Patient is awake, no acute distress. Even and unlabored breathing on 2L NC. IV fluids infusing as ordered to KENRICK PICC. Right wrist IV site saline locked. Wilkerson draining yellow urine to gravity. Patient is NPO pending swallow evaluation. Call light is with patient. Safety, fall, contact iso precautions in place. Will continue with plan of care.
--- NOTE | 2020-05-16 21:15 | NUR ---
TRANSFER TO [facility] PT TRANSFERRED TO 105 ACCOMPANIED BY 2 RNS FOLLOWING ACLS PROTOCOL. PT REMAINED ON 2L O2 VIA NC. BROUSSARD CATHETER IN PLACE AND DRAINING TO GRAVITY, 800 ML OF MERCEDES URINE EMPTIED BEFORE TRANSFER. PT REMAINED AWAKE AND ALERT, OCCASIONALLY YELLING. PROVIDED SBAR REPORT TO RECEIVING RN FOR CONTINUITY OF CARE.
--- NOTE | 2020-05-16 22:35 | NUR ---
Agitation: Patient is awake and yelling, PRN Ativan 1 MG IVP indicated. Medication administered intravenously per MD order, no adverse effects noted. Call light is with patient. Will continue monitoring.
[2020-05-17] MEDS: VANCOMYCIN HCL 1,250 MG in NS 250 ML IV SCH ×2 (00:21→13:00)
[2020-05-17 00:37] VITALS: BP_SYST 130
[2020-05-17] MEDS: D5W 1,000 ML IV SCH (06:10)
[2020-05-17] MEDS: LORazepam 2 MG/ML VIAL IVP PRN ×2 (06:10→15:30)
--- NOTE | 2020-05-17 06:32 | NUR ---
Closing note: Patient resting in bed, no acute distress, even and unlabored breathing on 2L NC. IV fluids infusing as ordered. Wilkerson draining to gravity. All needs met. Safety, fall, contact iso precautions in place. Will endorse care to dayshift RN.
[2020-05-17 06:38] LABS: CALCIUM 8.5 mg/dL (8.4-11.0); CREATININE 0.56 mg/dL (0.55-1.30); POTASSIUM 3.3 mmol/L (3.5-5.1); TOTAL BILIRUBIN 0.7 mg/dL (0.0-1.0)
[2020-05-17 07:34] LABS: HEMATOCRIT 30.2 % (36-48); HEMOGLOBIN 10.4 g/dL (12.0-16.0); MEAN CORPUSCULAR HEMOGLOBIN 33 pg (27-31); MEAN CORPUSCULAR HGB CONC 35 % (32-36); MEAN CORPUSCULAR VOLUME 95 fL (79.0-98.0); PLATELET COUNT (AUTO) 152 K/uL (130-430); RED BLOOD CELL COUNT(AUTO) 3.19 MIL/uL (4.2-6.2); RED CELL DISTRIBUTION WIDTH 15.7 % (9.0-15.0); WHITE BLOOD COUNT (AUTO) 12.2 K/uL (4.8-10.8)
[2020-05-17] MEDS: POTASSIUM CHLORIDE 20 MEQ/PKT PACKET PO SCH ×3 (08:00→16:30)
[2020-05-17 08:01] VITALS: BP_SYST 127
--- NOTE | 2020-05-17 08:11 | NUR ---
Initial notes- Awake, yelling and agitated at this time. IVF infusing well. on O2 2l, tolerating well, afebrile. will give meds for agitation. will monitor.
[2020-05-17] MEDS: HYDROCORTISONE SOD SUCC 100 MG/2 ML VIAL IVP SCH (08:15)
[2020-05-17] MEDS: FUROSEMIDE 40 MG/4 ML VIAL IVP SCH (08:15)
[2020-05-17] MEDS: EMOLLIENT COMBINATION NO.73 78 GM CREAM..G. TP SCH ×2 (08:16→20:36)
[2020-05-17] MEDS: CEFEPIME 0.5 GM in D5W 50 ML IV SCH ×2 (08:16→20:37)
--- NOTE | 2020-05-17 09:00 | NUR ---
Notes- has soft bowel movement, cleaned and repositioned. no distress noted.
--- NOTE | 2020-05-17 10:54 | NUR ---
Notes- Wilkerson catheter removed, tolerated well. will continue to monitor. Addendum: 05/17/20 at 1055 by Rossy Zavaleta RN wrong entry... disregard above notes.
--- NOTE | 2020-05-17 11:00 | NUR ---
Notes- pt is yelling and saying bad words, No distress noted. tolerating nasal cannula at 2L.
[2020-05-17 12:00] VITALS: BP_SYST 125
--- NOTE | 2020-05-17 15:26 | NUR ---
S.T. SWALLOW EVAL SWALLOW EVAL COMPLETED. PT PRESENTS W/ GENERALLY FUNCTIONAL OROPHARYNGEAL SWALLOWING FOR PUREE AND THIN/THICK LIQUIDS W/ NO S/S OF ASPIRATION. PT REFUSED MECH SOFT. REC: PUREE DIET. THIN LIQUIDS OK. NURSE SHASHANK WILLIS NOTIFIED.
--- NOTE | 2020-05-17 15:59 | NUR ---
DC Planning: per dr. Chao: planing to dc pt to [facility], the pt will need 5150 hold for the admission. -- RN Dorys made aware. The pt came from [facility], may need snf if no 5150 hold.The pt is bipolar, and agressive at time per md. note.
--- NOTE | 2020-05-17 16:00 | NUR ---
Notes- patient stated that she wants soda, but if you give her soda and she refused to drink.
[2020-05-17 16:16] VITALS: BP_SYST 114
--- NOTE | 2020-05-17 16:20 | NUR ---
SS notes: Pt came from [facility], indigo Saul RN to sophia umana MD to see patient.
--- NOTE | 2020-05-17 18:21 | NUR ---
Notes- Resting at this time. No distress noted. Seen by Dr. Chao. Waiting for Psyche consults
[2020-05-17 20:15] VITALS: BP_SYST 118
--- NOTE | 2020-05-17 21:22 | NUR ---
CONSULTATION PAGED/CALLED Reason for Consultation: Agitation Person Who was Notified: Spoke with Yodit from Dr Shelbi alaniz Consulting Physician: Dr Barrera is oncall for Dr Engle Mine Expert Specialty: Psych Ordering Physician: Miko Smyth
[2020-05-18] MEDS: VANCOMYCIN HCL 1,250 MG in NS 250 ML IV SCH ×2 (04:17→13:02)
[2020-05-18] MEDS: D5W 1,000 ML IV SCH ×2 (04:21→14:00)
--- NOTE | 2020-05-18 04:45 | NUR ---
NOTES: complete am care done, incontinent of urine. repositioned. pt. gets restless. IV on rt. wrist accidentally removed by pt. RT. Upper PICC line wrapped with kerlix gauze.
[2020-05-18 06:35] VITALS: BP_SYST 110
[2020-05-18 07:31] LABS: BAND % (MANUAL) 3 % (0-6); BASOPHILS % (MANUAL) 0 % (0-2); EOSINOPHILS % (MANUAL) 2 % (0-7); LYMPHOCYTES % (MANUAL) 31 % (20-46); MONOCYTES % (MANUAL) 8 % (0-11)
[2020-05-18 07:32] LABS: ERYTHROCYTE SEDIMENTATION RATE 40 MM/HR (0-20)
[2020-05-18 08:00] VITALS: BP_SYST 128
[2020-05-18 08:07] LABS: C-REACTIVE PROTEIN QUANT 5.7 mg/dL (0-0.5)
--- NOTE | 2020-05-18 08:30 | NUR ---
Notes- Awake, eat her breakfast with help. on room air tolerating well. ho catheter draining well. No distress noted. will continue to monitor.
[2020-05-18] MEDS: CEFEPIME 0.5 GM in D5W 50 ML IV SCH ×2 (08:54→20:36)
[2020-05-18] MEDS: FUROSEMIDE 40 MG/4 ML VIAL IVP SCH (08:55)
[2020-05-18] MEDS: POTASSIUM CHLORIDE 20 MEQ/PKT PACKET PO SCH ×3 (08:55→20:36)
[2020-05-18] MEDS: EMOLLIENT COMBINATION NO.73 78 GM CREAM..G. TP SCH ×2 (08:56→20:37)
[2020-05-18] MEDS ORDERED: HYDROCORTISONE SOD SUCC 100 MG/2 ML VIAL IVP SCH (09:00)
[2020-05-18 11:47] VITALS: BP_SYST 90
[2020-05-18 12:20] LABS: BASOPHILS # (AUTO) 0.1 K/uL (0.0-0.2); BASOPHILS % (AUTO) 0.5 % (0.0-2.0); EOSINOPHILS # (AUTO) 0.3 K/uL (0.0-0.4); EOSINOPHILS % (AUTO) 2.6 % (0.0-4.0); HEMATOCRIT 35.3 % (36-48); HEMOGLOBIN 11.7 g/dL (12.0-16.0); LYMPHOCYTES # (AUTO) 1.8 K/uL (1.0-5.5); LYMPHOCYTES % (AUTO) 14.3 % (20.5-51.5); MEAN CORPUSCULAR HEMOGLOBIN 31 pg (27-31); MEAN CORPUSCULAR HGB CONC 33 % (32-36); MEAN CORPUSCULAR VOLUME 95 fL (79.0-98.0); MONOCYTES # (AUTO) 0.6 K/uL (0.0-1.0); MONOCYTES % (AUTO) 4.5 % (1.7-9.3); NEUTROPHILS # (AUTO) 9.9 K/uL (1.8-7.7); NEUTROPHILS % (AUTO) 78.1 % (40.0-70.0); PLATELET COUNT (AUTO) 129 K/uL (130-430); RED BLOOD CELL COUNT(AUTO) 3.72 MIL/uL (4.2-6.2); RED CELL DISTRIBUTION WIDTH 15.3 % (9.0-15.0); WHITE BLOOD COUNT (AUTO) 12.6 K/uL (4.8-10.8)
[2020-05-18 12:24] LABS: CALCIUM 8.8 mg/dL (8.4-11.0); CREATININE 0.57 mg/dL (0.55-1.30)
[2020-05-18 12:30] LABS: ALBUMIN 2.2 g/dL (3.4-4.8); TOTAL BILIRUBIN 0.6 mg/dL (0.0-1.0)
[2020-05-18 12:44] LABS: C-REACTIVE PROTEIN QUANT 2.8 mg/dL (0-0.5)
[2020-05-18 13:19] LABS: ERYTHROCYTE SEDIMENTATION RATE 97 MM/HR (0-20)
--- NOTE | 2020-05-18 14:49 | NUR ---
P.T. NOTES P.T. EVAL COMPLETED; REFER TO EVAL FOR DETAILS; ENDORSED TO NURSING.
[2020-05-18 15:45] VITALS: BP_SYST 117
--- NOTE | 2020-05-18 16:43 | NUR ---
CONSULTATION CALLED REASON FOR CONSULTATION:INPATIENT PSYCH PLACEMENT WAS CONSULT CALLED?Y PERSON WHO WAS NOTIFIED:DANIA CONSULTING PHYSICIAN:CHANCE PARRISH ( METAL POLISHER) NICKER AND BREAKER SPECIALTY:PSYCHE NICKER AND BREAKER PHONE NUMBER:[phone] REQUESTING PHYSICIAN:ANITA MORAES
--- NOTE | 2020-05-18 17:36 | NUR ---
MD ROUNDS Dr. mon here and made aware that patient's refused to take her pottasium this morning. MD will order IV pottasium.
--- NOTE | 2020-05-18 18:43 | NUR ---
Nutrition F/U (short note d/t high patient load) RD reviewed pt's current EMR including diet Hx, physician notes, nursing notes, pertinent labs/meds/procedures, care trends, and care activity. Current Diet Order: Pureed Per EMR review, pt is not meeting nutritional needs. Pt is receiving ONS Ensure Enlive TID w/ meals as part of standard pureed diet order. PO intake records reveal 23% average x4 meal records. Encourage increase PO intakes for adequate nutrition. Pt remains at high nutritional risk; RD to F/U within 2-3 days.
[2020-05-18 20:05] VITALS: BP_SYST 117
[2020-05-18] MEDS: KCL 20 mEq in 100 mL (PREMIX) 100 ML IV SCH (20:38)
[2020-05-19] MEDS: VANCOMYCIN HCL 1,000 MG in NS 250 ML IV SCH ×2 (00:10→13:00)
[2020-05-19] MEDS: D5W 1,000 ML IV SCH ×2 (00:11→21:36)
[2020-05-19 00:39] VITALS: BP_SYST 99
[2020-05-19 07:30] LABS: BASOPHILS # (AUTO) 0.1 K/uL (0.0-0.2); BASOPHILS % (AUTO) 0.5 % (0.0-2.0); EOSINOPHILS # (AUTO) 0.4 K/uL (0.0-0.4); EOSINOPHILS % (AUTO) 3.4 % (0.0-4.0); HEMATOCRIT 35.6 % (36-48); HEMOGLOBIN 11.9 g/dL (12.0-16.0); LYMPHOCYTES % (AUTO) 31.2 % (20.5-51.5); MEAN CORPUSCULAR HEMOGLOBIN 32 pg (27-31); MEAN CORPUSCULAR HGB CONC 33 % (32-36); MEAN CORPUSCULAR VOLUME 95 fL (79.0-98.0); MONOCYTES # (AUTO) 0.7 K/uL (0.0-1.0); MONOCYTES % (AUTO) 5.7 % (1.7-9.3); NEUTROPHILS # (AUTO) 7.6 K/uL (1.8-7.7); NEUTROPHILS % (AUTO) 59.2 % (40.0-70.0); PLATELET COUNT (AUTO) 206 K/uL (130-430); RED BLOOD CELL COUNT(AUTO) 3.73 MIL/uL (4.2-6.2); RED CELL DISTRIBUTION WIDTH 15.6 % (9.0-15.0); WHITE BLOOD COUNT (AUTO) 12.7 K/uL (4.8-10.8)
[2020-05-19 08:00] VITALS: BP_SYST 123
[2020-05-19 08:24] LABS: ERYTHROCYTE SEDIMENTATION RATE 92 MM/HR (0-20)
[2020-05-19] MEDS: POTASSIUM CHLORIDE 20 MEQ/PKT PACKET PO SCH ×3 (09:00→21:00)
[2020-05-19 09:08] LABS: CALCIUM 8.9 mg/dL (8.4-11.0); CREATININE 0.61 mg/dL (0.55-1.30); POTASSIUM 3.2 mmol/L (3.5-5.1)
[2020-05-19] MEDS: CEFEPIME 0.5 GM in D5W 50 ML IV SCH ×2 (11:48→21:36)
[2020-05-19] MEDS: EMOLLIENT COMBINATION NO.73 78 GM CREAM..G. TP SCH ×2 (11:49→21:37)
[2020-05-19] MEDS: FUROSEMIDE 40 MG/4 ML VIAL IVP SCH (11:59)
[2020-05-19] MEDS: KCL 20 mEq in 100 mL (PREMIX) 100 ML IV SCH ×2 (12:06→21:34)
[2020-05-19 12:07] VITALS: BP_SYST 106
[2020-05-19 12:25] LABS: C-REACTIVE PROTEIN QUANT 3.1 mg/dL (0-0.5)
[2020-05-19] MEDS ORDERED: FURO-150 PO (13:25)
[2020-05-19] MEDS ORDERED: DOXY-244 PO (13:25)
--- NOTE | 2020-05-19 14:14 | NUR ---
SS notes WORKERS COMPENSATION ATTORNEY Called [phone] and spoke to Sarina there who stated usually Cody would verify eligibility during the week. Sarina stated there was noone at her facility who could do this, noone in admissions but asked for clinicals to be faxed at [phone]. WORKERS COMPENSATION ATTORNEY called Admissions and spoke to Shakira who stated yes they usually verify eligibility, but they are so backed up. WORKERS COMPENSATION ATTORNEY will call back later to see if Shakira can check the eligibility as well as fax over clinicals to [facility]. Addendum: 05/19/20 at 1446 by Matilde PATHAK SS notes WORKERS COMPENSATION ATTORNEY spoke to SNAGEETHA Villegas to notify her that the patients eligibility first need to be verified and the staff are backed up. Rn stated patient currently has a foli. WORKERS COMPENSATION ATTORNEY stated [facility] stated they cannot accommodate a foli. Rn stated by the time pt. is discharged the foli can be discontinued. Addendum: 05/19/20 at 1711 by Matilde Gunter MSW SS notes WORKERS COMPENSATION ATTORNEY called Shakira in admissions who was able to verify patients eligibility and stated she will fax [facility] this status. WORKERS COMPENSATION ATTORNEY will need to call tomorrow to get patient transferred.
[2020-05-19 16:19] VITALS: BP_SYST 118
[2020-05-19 20:10] VITALS: BP_SYST 100
[2020-05-20] VITALS: BP_SYST 100
[2020-05-20] MEDS: VANCOMYCIN HCL 1,000 MG in NS 250 ML IV SCH ×2 (00:17→16:42)
--- NOTE | 2020-05-20 08:00 | NUR ---
ASSUMPTION OF CARE: RECEIVED PT AWAKE, MENTALLY DELAYED, ORIENTED TO NAME ONLY, DX:INADEQUATE VENTILATION, R/T COPD EXACERBATION, AFEBRILE, VSS, BREATHING EASY, SATURATING 95% ORA, BREATH SOUNDS ARE CLEAR, NO S/S OF DISTRESS, IV PICC LINE SITE INTACT, PATENT NO REDNESS OR SWELLING, FLUSHES WELL, GOOD BLOOD RETURN, NO INDICATION OF PAIN OR DISCOMFORT, REORIENTED TO UNIT, CALL LIGHT PLACED WITHIN REACH, ROOM CLOSE TO NURSES STATION, WILL CONT' TO MONITOR AND ASSESS.
[2020-05-20] MEDS: KCL 20 mEq in 100 mL (PREMIX) 100 ML IV SCH ×2 (10:52→21:44)
[2020-05-20] MEDS: POTASSIUM CHLORIDE 20 MEQ/PKT PACKET PO SCH ×2 (10:52→21:44)
[2020-05-20] MEDS ORDERED: FUROSEMIDE 20 MG TABLET ONE ×2 (10:55→16:36)
[2020-05-20] MEDS: FUROSEMIDE 20 MG TABLET PO SCH (11:08)
[2020-05-20 12:00] VITALS: BP_SYST 126
[2020-05-20 16:00] VITALS: BP_SYST 137
[2020-05-20] MEDS: EMOLLIENT COMBINATION NO.73 78 GM CREAM..G. TP SCH ×2 (16:40→21:44)
[2020-05-20] MEDS: D5W 1,000 ML IV SCH (16:51)
--- NOTE | 2020-05-20 18:00 | NUR ---
CLOSING NOTES: PT REMAINS STABLE, POSITIONED FOR COMFORT, NEEDS MET, WILL ENDORSE TO BUTTER PRODUCTION SUPERVISOR NURSE.
--- NOTE | 2020-05-20 23:45 | NUR ---
ROUNDS PATIENT AWAKE, PICC LINE FOUND PULLED OUT, NO BLEEDING NOTED ON THE SITE ON THE RIGHT UPPER ARM. IV REINSERTION DONE ON THE LEFT FOREARM G. 22, TOLERATED WELL. WILL CONTINUE TO MONITOR.
[2020-05-21] VITALS: BP_SYST 124
[2020-05-21] MEDS: VANCOMYCIN HCL 1,000 MG in NS 250 ML IV SCH ×2 (01:24→12:09)
[2020-05-21 07:31] LABS: BASOPHILS # (AUTO) 0.1 K/uL (0.0-0.2); BASOPHILS % (AUTO) 0.8 % (0.0-2.0); EOSINOPHILS # (AUTO) 0.3 K/uL (0.0-0.4); EOSINOPHILS % (AUTO) 2.8 % (0.0-4.0); HEMATOCRIT 35.1 % (36-48); LYMPHOCYTES # (AUTO) 3.7 K/uL (1.0-5.5); LYMPHOCYTES % (AUTO) 35.2 % (20.5-51.5); MEAN CORPUSCULAR HEMOGLOBIN 33 pg (27-31); MEAN CORPUSCULAR HGB CONC 34 % (32-36); MEAN CORPUSCULAR VOLUME 95 fL (79.0-98.0); MONOCYTES % (AUTO) 9.9 % (1.7-9.3); NEUTROPHILS # (AUTO) 5.3 K/uL (1.8-7.7); NEUTROPHILS % (AUTO) 51.3 % (40.0-70.0); PLATELET COUNT (AUTO) 354 K/uL (130-430); RED BLOOD CELL COUNT(AUTO) 3.69 MIL/uL (4.2-6.2); RED CELL DISTRIBUTION WIDTH 15.4 % (9.0-15.0); WHITE BLOOD COUNT (AUTO) 10.4 K/uL (4.8-10.8)
[2020-05-21 07:36] LABS: CALCIUM 9.5 mg/dL (8.4-11.0); CREATININE 0.66 mg/dL (0.55-1.30); POTASSIUM 3.6 mmol/L (3.5-5.1)
[2020-05-21 08:00] VITALS: BP_SYST 118
[2020-05-21] MEDS: D5W 1,000 ML IV SCH (08:44)
[2020-05-21] MEDS: POTASSIUM CHLORIDE 20 MEQ/PKT PACKET PO SCH ×2 (08:45→22:19)
[2020-05-21] MEDS: KCL 20 mEq in 100 mL (PREMIX) 100 ML IV SCH ×2 (08:45→22:20)
[2020-05-21] MEDS: FUROSEMIDE 20 MG TABLET PO SCH (08:46)
[2020-05-21] MEDS: EMOLLIENT COMBINATION NO.73 78 GM CREAM..G. TP SCH ×2 (08:56→22:24)
--- NOTE | 2020-05-21 09:15 | NUR ---
SS notes/Psych transfer: HEALTH INSURANCE ASSESSOR spoke with Sarah Ross from [facility]. Nursing is currently reviewing clinicals; faxed progress notes from SHELBIE and nahomi beavers result. SS will follow up. Addendum: 05/21/20 at 1449 by Timi Garza MSW Patient's 6020 hold was written on 05/18/20 @ 11AM. HEALTH INSURANCE ASSESSOR informed Solomon VIVAS that hold ; will page Dr. Barrera to renew. Geovanna from [facility] will hold bed for patient. Medic-1 on will call. Packet to unit.
--- NOTE | 2020-05-21 09:37 | NUR ---
alert, awake, pleasantly confused. " only 41years old", and did not know where she is. did not want to eat, drank the whole Ensure. On RA, sat well, possible discharge back to SNF
--- NOTE | 2020-05-21 10:08 | NUR ---
Nutrition F/U RD reviewed pt's current EMR record including diet hx, MD notes, RN notes, pertinent labs/meds/procedures, care trends, and care activity Admitting Diagnosis COPD Reviewed Pertinent Medical/Surgical Hx Medical Record Other Medical History Comment: PMH: COPD, bipolar disorder, hypothyroidism per physician notes Pt also found w/ septic shock, possibly from pneumonia, r/o COVID pneumonia, r/o UTI, moderate obesity per physician notes SARS-CoV-2 Ag (Rapid) Negative 05/10 Subjective Information Pt extubated 05/15, off sedation, off vent, and diet has been initiated on 05/17 s/p swallow eval on 05/17. Remains on Pureed Diet w/ thin liquids per DIMENSIONAL ENGINEER. Per MD note, pt refuses meals, and noted pt w/ poor PO intakes of 0-30% of meals w/ multiple refusals noted. Per RN, pt refused breakfast, but drank 100% of Ensure. Pt is currently meeting her needs. Noted pt already has Ensure Enlive TID as part of standard Pureed diet order. Encourage increase PO intakes during meal times to promote adequate nutrition. If not contraindicated, consider appetite stimulant. +BM 05/20. Current Diet Order/Nutrition Support Pureed Diet x 4 days Pertinent Medications IV D5W @ 60 ml/hr, vancomycin Pertinent Labs BG 108 H (trending down), BNP 32 (improved), WBC 12.7 H (trending down), ALB 2.2 L, Na 140 (improved), K 3.6 Patient Weight 114.759 kg Skin Integrity Comment: Bairon scale: 15; no PIs noted per EMR review; RN reported that pt has rashes to abd, arms, and legs NEW Estimated Energy Expenditure (kcals/day) 3058-8380 kcal/day (25-30 kcal/kg adj IBW for maintenance) Estimated Protein Required (g/day) 105-140 gm/day (1.5-2 gm/kg Adj IBW for sepsis) Estimated Fluid Required (l/day) 1.9 L/day (1 ml/kcal/day for maintenance) Problem/Etiology/Signs/Symptoms Increased nutritional needs related to metabolic demands as evidenced by estimated nutritional requirements for sepsis. *modified; improved w/ pt off vent and on diet Expected Outcomes/Goals - Monitor diet tolerance and PO intake w/ goal of pt meeting at least 50% of estimated nutritional needs, labs trending WNL, normal GI function, and skin integrity/wt maintenance Dietitian Recommendations * Recommend continue Pureed Diet. Ensure Enlive TID (1050 kcal, 60 g protein) comes standard w/ meals. * Encourage increase PO intake during meal times. * If poor PO intake persists, consider appetite stimulant if not contraindicated. Follow Up High Risk: F/U in 2-3days
--- NOTE | 2020-05-21 10:40 | NUR ---
Dietitian Recommendations * Recommend continue Pureed Diet. Ensure Enlive TID (1050 kcal, 60 g protein) comes standard w/ meals. * Encourage increase PO intake during meal times. * If poor PO intake persists, consider appetite stimulant if not contraindicated. Please see Nutrition F/U for details. DESHAUNRD
[2020-05-21 11:37] VITALS: BP_SYST 123
[2020-05-21 12:34] LABS: ERYTHROCYTE SEDIMENTATION RATE 89 MM/HR (0-20)
[2020-05-21 13:17] LABS: C-REACTIVE PROTEIN QUANT 3.6 mg/dL (0-0.5)
--- NOTE | 2020-05-21 14:52 | NUR ---
got a call from social insurance adviser, notified that the HOLD for this patient is going to , dr Barrera called and left a message
--- NOTE | 2020-05-21 16:07 | NUR ---
PAGED PAGED AT [phone] SPOKE WITH
[2020-05-21] MEDS ORDERED: DOXY-244 PO (16:46)
[2020-05-21 16:48] VITALS: BP_SYST 128
--- NOTE | 2020-05-21 17:15 | NUR ---
the psychiatrist called back, made aware patient need 5150 in order to go back to [facility]. Dr Barrera will either come later tonite or early in am, to renew the hold. CM, and person in charge aware of this .
[2020-05-21 20:00] VITALS: BP_SYST 116
[2020-05-22] VITALS (7 sets, daily range): BP systolic 125–149
[2020-05-22] MEDS: VANCOMYCIN HCL 1,000 MG in NS 250 ML IV SCH ×2 (02:16→12:53)
--- NOTE | 2020-05-22 06:00 | NUR ---
Closing notes Pt awake, no s/s distress. IV TKO L. FA 22G clear and patent. Wilkerson catheter draining to gravity w/ yellow cloudy urine. Call light within reach. Bed low, locked, siderails up x4, alarm on. To endorse to AM nurse.
[2020-05-22 06:28] LABS: BASOPHILS # (AUTO) 0.1 K/uL (0.0-0.2); BASOPHILS % (AUTO) 1.2 % (0.0-2.0); EOSINOPHILS # (AUTO) 0.5 K/uL (0.0-0.4); EOSINOPHILS % (AUTO) 4.8 % (0.0-4.0); HEMOGLOBIN 12.2 g/dL (12.0-16.0); LYMPHOCYTES # (AUTO) 3.3 K/uL (1.0-5.5); LYMPHOCYTES % (AUTO) 34.7 % (20.5-51.5); MEAN CORPUSCULAR HEMOGLOBIN 32 pg (27-31); MEAN CORPUSCULAR HGB CONC 34 % (32-36); MEAN CORPUSCULAR VOLUME 95 fL (79.0-98.0); MONOCYTES # (AUTO) 0.9 K/uL (0.0-1.0); MONOCYTES % (AUTO) 9.8 % (1.7-9.3); NEUTROPHILS # (AUTO) 4.7 K/uL (1.8-7.7); NEUTROPHILS % (AUTO) 49.5 % (40.0-70.0); PLATELET COUNT (AUTO) 411 K/uL (130-430); RED BLOOD CELL COUNT(AUTO) 3.78 MIL/uL (4.2-6.2); RED CELL DISTRIBUTION WIDTH 15.6 % (9.0-15.0); WHITE BLOOD COUNT (AUTO) 9.4 K/uL (4.8-10.8)
[2020-05-22 07:05] LABS: ALBUMIN 2.6 g/dL (3.4-4.8); CALCIUM 9.6 mg/dL (8.4-11.0); CREATININE 0.69 mg/dL (0.55-1.30); POTASSIUM 4.2 mmol/L (3.5-5.1); TOTAL BILIRUBIN 0.6 mg/dL (0.0-1.0)
[2020-05-22] MEDS ORDERED: FUROSEMIDE 20 MG TABLET ONE (08:59)
[2020-05-22] MEDS: POTASSIUM CHLORIDE 20 MEQ/PKT PACKET PO SCH (09:15)
[2020-05-22] MEDS: KCL 20 mEq in 100 mL (PREMIX) 100 ML IV SCH (09:15)
[2020-05-22] MEDS: FUROSEMIDE 20 MG TABLET PO SCH (09:16)
[2020-05-22] MEDS: EMOLLIENT COMBINATION NO.73 78 GM CREAM..G. TP SCH (09:18)
--- NOTE | 2020-05-22 10:26 | NUR ---
SS notes/psych transfer: LOOM STOP CHECKER faxed renewed hold to [facility] with [facility] ([phone]). Awaiting call back on accepting information. Addendum: 05/22/20 at 1349 by Timi Garza MSW LOOM STOP CHECKER received a call from [facility] with [facility]. Pt is accepted to room 55A under Dr. Brice and Dr. Castelan. Nurse to nurse report [phone]. Medic-1 arranged for pick-up. Emily VIVAS notified. Addendum: 05/22/20 at 1423 by Timi Garza MSW LOOM STOP CHECKER phoned father George that patient will be transferred back to [facility] and left voicemail for Ms. Moe.
[2020-05-22 10:44] LABS: C-REACTIVE PROTEIN QUANT 2.2 mg/dL (0-0.5)
[2020-05-22 14:26] LABS: ERYTHROCYTE SEDIMENTATION RATE 86 MM/HR (0-20)
--- NOTE | 2020-05-22 20:55 | NUR ---
D/C Patient Discharge pt back to [facility] on 5150 hold. Patient in stable condition, ID band removed. IV catheter removed, intact and dressing applied, no active bleeding. Wilkerson catheter removed. Pt tolerated well. Report given to Ramone Gallo. Pt has no belongings.
== END 2020-05-22 20:55 | DRG 870 ==
LOC: SED 22:56 → STU 05-10 02:36 → SIC 05-10 20:15 → STU 05-16 21:48 → SMU 05-17 17:43
PROVIDERS: ADMIT Preventive Medicine Preventive Medicine/Occupational Environmental Medicine; ATTEND Preventive Medicine Preventive Medicine/Occupational Environmental Medicine
PROC: 5A1955Z Respiratory Ventilation, Greater than 96 Consecutive Hours (ICD-10-PCS; principal; 2020-05-10)
PROC: 0BH17EZ Insertion of Endotracheal Airway into Trachea, Via Natural or Artificial Opening (ICD-10-PCS; 2020-05-10)
PROC: 02HV33Z Insertion of Infusion Device into Superior Vena Cava, Percutaneous Approach (ICD-10-PCS; 2020-05-10)
PROC: 5A09357 Assistance with Respiratory Ventilation, Less than 24 Consecutive Hours, Continuous Positive Airway Pressure (ICD-10-PCS; 2020-05-10)
DX: A41.9 Sepsis, unspecified organism (principal); R65.21 Severe sepsis with septic shock; J15.212 Pneumonia due to Methicillin resistant Staphylococcus aureus; J96.01 Acute respiratory failure with hypoxia; F23 Brief psychotic disorder; J44.0 Chronic obstructive pulmonary disease with (acute) lower respiratory infection; J44.1 Chronic obstructive pulmonary disease with (acute) exacerbation; J90 Pleural effusion, not elsewhere classified; Z68.41 Body mass index [BMI] 40.0-44.9, adult; E03.9 Hypothyroidism, unspecified; E66.9 Obesity, unspecified; F17.200 Nicotine dependence, unspecified, uncomplicated; F31.9 Bipolar disorder, unspecified; I10 Essential (primary) hypertension; I48.0 Paroxysmal atrial fibrillation; E88.09 Other disorders of plasma-protein metabolism, not elsewhere classified; D69.6 Thrombocytopenia, unspecified; Z20.828 Contact with and (suspected) exposure to other viral communicable diseases; E87.6 Hypokalemia; R74.01 Elevation of levels of liver transaminase levels; R73.9 Hyperglycemia, unspecified; D64.9 Anemia, unspecified; Z88.8 Allergy status to other drugs, medicaments and biological substances
CPT/HCPCS: 36415; 36600; 71045; 80048; 80053; 80202-TC; 81003; 82803-TC; 82962; 83605; 83735-TC; 83880; 84443-TC; 84484; 85007; 85025; 85027; 85379; 85610-TC; 85651-TC; 85730-TC; 86140; 87040-TC; 87070-TC; 87081; 87086; 87186-TC; 87205-TC; 87210-TC; 92610-GN; 93005; 93306; 94002; 94003; 94640; 94660; 96361; 96365; 99291; C1751; G0378; J0692; J1630; J1720; J1940; J1956; J2020; J2060; J2543; J2704; J3370; J3480; J3490; J7030; J7040; J7050; J7060; J7612; P9046; U0003